=== PATIENT | female | born 1980 | race Hispanic/Latino ===

== ENCOUNTER → 2017-02-07 | Outpatient (CLI) | payer OTHER ==
--- NOTE | 2017-02-07 19:42 | Diagnostic Imaging Report ---
Bilateral diagnostic mammogram. INDICATION: Bilateral breast pain and medial right breast lump. The current study was also evaluated with a Computer Aided Detection (CAD) system. COMPARISON: No prior studies are available for comparison. This is a baseline exam. FINDINGS: There are scattered fibroglandular densities bilaterally slightly more dense in the upper-outer aspect of the right breast more than left. At the upper aspect of the right breast, there is an asymmetry seen on the MLO view with no convincing correlate in the lateral or the CC projection. Focal compression views performed and demonstrate less prominent asymmetry likely related to summation artifact of parenchyma. The left breast demonstrates no suspicious mass. IMPRESSION: Findings demonstrate no definite suspicious lesion. Ultrasound evaluation pending. ACR BI-RADS Category 0: Incomplete. (Needs additional imaging evaluation). Result letter will be mailed to the patient. Note: At least 10% of breast cancer is not imaged by mammography. Dictated by: Dictated on workstation # [id number]
--- NOTE | 2017-02-08 08:57 | Diagnostic Imaging Report ---
Bilateral breast ultrasound. INDICATION: Palpable right breast lump and bilateral breast pain. FINDINGS: Unremarkable breast parenchyma seen with no focal lesion identified in the four quadrants in the retroareolar region of each breast. IMPRESSION: Negative study. Clinical followup is recommended. ACR BI-RADS Category 1: Negative. Dictated by: Dictated on workstation # [id number]
== END ==
LOC: RAD 14:19
PROVIDERS: ATTEND Obstetrics & Gynecology
DX: N64.4 Mastodynia (principal); N60.01 Solitary cyst of right breast
CPT/HCPCS: 77066